=== PATIENT | female | born 1995 | race Two or more races ===

== ENCOUNTER 2023-07-08 06:04 | Emergency (ER) | payer MEDICAID ==
[~2023-07-08] VITALS: Ht 165.1 cm; Wt 95.0 kg
[~2023-07-08 06:04] MED LIST: LIDO20SO PO
[2023-07-08 07:05] VITALS: BP 114/81; PULSE 89; RESP 16; TEMP 98.9; O2SAT 100
== END 2023-07-08 12:06 | disposition left against medical advice (07) ==
LOC: ER 06:05
DX: K04.7 Periapical abscess without sinus (principal); Z53.21 Procedure and treatment not carried out due to patient leaving prior to being seen by health care provider
CPT/HCPCS: 99281